=== PATIENT | female | born 1945 | race Caucasian/White ===

== ENCOUNTER 2016-12-30 05:58 | Day surgery (SDC) | payer OTHER, MEDICARE ==
[2016-12-30] MEDS ORDERED: LACTATED RINGERS 1,000 ML ONE (06:31)
[2016-12-30 08:51] VITALS: BP 110/60; TEMP 99; O2SAT 98
--- NOTE | 2016-12-30 10:05 | OP ---
DATE OF PROCEDURE: 12/30/16 PREOPERATIVE DIAGNOSIS: 1. History of colonic polyps. 2. History of diverticulosis. POSTOPERATIVE DIAGNOSIS: 1. Sessile colonic polyp at 15 cm, at the most distal end of the sigmoid colon. 2. Sigmoid diverticulosis, moderate. PROCEDURE: 1. Colonoscopy with polypectomy. SURGEON: Delfin Guaman MD. ANESTHESIA: MAC by Mario Shin CRNA. ESTIMATED BLOOD LOSS: less than 2 mL. COMPLICATIONS: None apparent. TECHNIQUE: After informed consent was obtained from the patient, the patient was taken to the Endoscopy Suite and put in the left lateral decubitus position. After adequate IV sedation was obtained, a digital rectal exam was performed which revealed normal sphincter tone and no intraluminal masses. The colonoscope was then passed with good visualization all the way through the colon. The bowel prep was good. The cecum was identified by the presence of ileocecal valve and appendiceal orifice. The scope was then withdrawn slowly over the next 10 minutes and a good look at the entire colonic mucosa was obtained. I did identify one colonic polyp at the distal end of the sigmoid colon. It was a sessile polyp. It was right in a turn and very difficult to get our biopsy tool up to it. We were able to get a loop around it and did a hot snare with good hemostasis. The polyp was retrieved and sent to Pathology. The scope was removed the rest of the way. The patient tolerated the procedure well. The patient was transported to the outpatient area in good condition. She will followup with me in one week. #[id number] [facility] MED[facility] CENTERFrancesca
[2016-12-30] MEDS ORDERED: PROPOFOL 200 MG/20 ML VIAL IV ONE (12:00)
== END 2016-12-30 08:40 | disposition home or self-care (01) ==
LOC: AMB 05:58
PROVIDERS: ATTEND Family Medicine
DX: Z12.11 Encounter for screening for malignant neoplasm of colon (principal); D12.5 Benign neoplasm of sigmoid colon; K57.30 Diverticulosis of large intestine without perforation or abscess without bleeding; J45.909 Unspecified asthma, uncomplicated; E78.00 Pure hypercholesterolemia, unspecified; G47.33 Obstructive sleep apnea (adult) (pediatric); Z86.010 Personal history of colon polyps; G51.0 Bell's palsy; M81.0 Age-related osteoporosis without current pathological fracture; Z88.2 Allergy status to sulfonamides; Z91.041 Radiographic dye allergy status; Z87.891 Personal history of nicotine dependence
CPT/HCPCS: 00810; 45385; 88305; J3490; J7120

== ENCOUNTER → 2017-02-19 | Outpatient (CLI) | payer MEDICARE, OTHER | LOC: GMAH 11:13 | PROVIDERS: ATTEND Family Medicine | DX: E78.00 Pure hypercholesterolemia, unspecified (principal) ==

== ENCOUNTER → 2018-06-01 | Outpatient (CLI) | payer MEDICARE, OTHER ==
--- NOTE | 2018-06-01 15:53 | MRI ---
Study: MRI of the Right Foot. Indication: PAIN IN RIGHT FOOT Technique: Multiplanar, multi sequence MRI of the right foot was obtained without intravenous contrast. Comparison: None. Findings: Mild subcutaneous edema about the ankle. Patchy marrow edema noted in the anterolateral aspects of the distal calcaneus and the adjacent cuboid and likely reflect osseous contusions given history. Stress-related marrow edema is also a consideration as well. No displaced fracture identified. 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 Mild grade 4 chondrosis and subchondral marrow change at the lateral margin talar dome. Lisfranc ligament intact. Prior sprain anterior talofibular ligament with associated attenuation. No acute fluid filled tear of the medial or lateral ankle ligaments identified. Trace tenosynovitis medial tendons and peroneal tendons without tear. 7 mm os navicular bone. Moderate plantar calcaneal heel spurring. Plantar fascia intact. Impression: Patchy marrow edema throughout the calcaneus and cuboid likely contusive in etiology given history. Stress-related marrow edema is also a consideration. No fracture. Additional findings as above. Electronically signed by: Timmy Flores MD 06/01/2018 3:51 PM CDT
== END ==
LOC: MRI 13:34
PROVIDERS: ATTEND Family Medicine
DX: M79.671 Pain in right foot (principal)

== ENCOUNTER → 2018-06-02 | Outpatient (CLI) | payer MEDICARE, OTHER ==
--- NOTE | 2018-06-02 15:50 | RAD ---
EXAM DESCRIPTION: UGI: Rad-Fluoroscopy. CLINICAL HISTORY: DYSPHAGIA COMPARISON: None TECHNIQUE: The patient swallowed barium pill with water. The patient swallowed gas-producing granules, water, and heavy density barium under fluoroscopic visualization. The images were obtained with the patient standing and horizontal. Patient drank medium density barium through a straw in the semi-prone position. 79 fluoroscopic cine loop images. 9 static fluoroscopic images. Total fluoroscopy time was 2 minutes. DAP: Less than 10 Gy-cm2.. FINDINGS: The pill reached the esophagus at the level of the sternoclavicular joints after 1 sip water. After the second sip water, the pill reached the gastroesophageal junction. After the third sip of water, the pill flowed into the stomach. Before swallowing, there is premature spillage of contrast from the oral cavity into the left piriform sinus and vallecula. Patient required 2 swallows each time to clear the oral cavity. No laryngeal penetration or tesha aspiration. No mass effect on the hypopharynx or larynx. Primary peristaltic wave travels almost entire length of the esophagus with minimal secondary contractions. No gastroesophageal obstruction. Small sliding hiatal hernia. Mucosal pattern on the esophagus is unremarkable. Minimal contrast reflux into the hiatal hernia. Surgical clips in the gallbladder fossa. No gross mucosal lesions in the stomach. No mass effect. Duodenum was well distended with oral contrast. Medial wall diverticulum in the second segment. No other mucosal lesions. No mass effect. IMPRESSION: 1. No gross abnormalities of the swallowing mechanism. Premature loss of contrast from the oral cavity prior to swallowing. No mucosal lesions or mass effect on the hypopharynx or larynx. No laryngeal penetration or aspiration. 2. Primary peristaltic wave of the esophagus is almost complete with minimal secondary contractions distally. 3. Small sliding hiatal hernia with minimal gastroesophageal reflux into the hernia. 4. Stomach is unremarkable. Duodenum is unremarkable except for a medial wall diverticulum of the second segment. Electronically signed by: Moreno Day MD 06/02/2018 3:49 PM CDT
== END ==
LOC: RAD 10:05
PROVIDERS: ATTEND Family Medicine
DX: R13.10 Dysphagia, unspecified (principal); K44.9 Diaphragmatic hernia without obstruction or gangrene

== ENCOUNTER → 2018-09-03 | Outpatient (CLI) | payer MEDICARE, OTHER ==
--- NOTE | 2018-09-03 19:11 | MRI ---
EXAM DESCRIPTION: Knee,Right: MRI. CLINICAL HISTORY: MEDIAL MENISCUS TEAR COMPARISON: None. TECHNIQUE: Multiplanar, high-field MRI, multiple sequences, without contrast: right ortho FINDINGS: Intermediate signal in the medial and lateral menisci representing degeneration. Abnormal signal in the free edge of the anterior horn of the lateral meniscus communicating with the inferior articular surface and extending to the anterior root attachment. Effusion in the medial and lateral compartments. Chondromalacia medial more than lateral but no subchondral edema. Intermediate signal in the tibial insertion of the anterior cruciate ligament. Edema and swelling in the central posterior cruciate ligament. Intercruciate space effusion. Medial collateral ligament and elements of the lateral collateral ligament complex with normal signal. Posterior medial soft tissue fluid collections and edema in the lateral gastrocnemius muscle. Intermediate signal in the distal quadriceps tendon. Minimal edema anterior to the patella. Normal signal in thew patellar tendon. Minimal suprapatellar effusion. Grade 4 osteochondral lesion in the inferior left patellar facet at 2 locations. Chondromalacia in the lateral more than the medial trochlea. IMPRESSION: 1. Degeneration of the medial lateral menisci. Free edge tear of the anterior horn of the lateral meniscus. Medial and lateral compartment effusion. 2. Focal moderate sprain or partial tear of the posterior cruciate ligament. Minimal degeneration of the anterior cruciate ligament. Intercruciate space effusion. Lateral ligaments and lateral complex are intact. 3. Osteochondral lesions in the anterior lateral patellar facet and chondromalacia in the femoral trochlea. Medial fluid collections and posterior lateral gastrocnemius muscle strain. 4. Minimal suprapatellar effusion and degeneration of the quadriceps tendon insertion on the patella. Electronically signed by: Moreno Day MD 09/03/2018 7:09 PM CDT
== END ==
LOC: MRI 09:54
PROVIDERS: ATTEND Family Medicine
DX: S83.241A Other tear of medial meniscus, current injury, right knee, initial encounter (principal); S83.281A Other tear of lateral meniscus, current injury, right knee, initial encounter; M94.261 Chondromalacia, right knee; M25.461 Effusion, right knee

== ENCOUNTER → 2018-12-15 | Outpatient (CLI) | payer MEDICARE, OTHER ==
--- NOTE | 2018-12-16 17:35 | MAM ---
EXAM DESCRIPTION: 3D Screening BILATERAL : Digital Mammography. CLINICAL HISTORY: 73 years Female SCREEN . No complaints. No personal or family history of breast cancer.. Childbirth. Postmenopausal 39 years. No HRT in past 5 years. Lifetime risk of developing breast cancer (Tyrer-Cuzick model)(%): 3.2. COMPARISON: 2-D digital screening bilateral mammography . No prior reports available. TECHNIQUE: Bilateral CC and MLO projection full-field images, digital tomosynthesis mammographic technique. Bilateral digital 2-D full-field MLO images. CAD not available for tomosynthesis or 2-D images. FINDINGS: The breast parenchymal density pattern is: Almost entirely fatty. No skin thickening or nipple retraction. Bilateral axillary lymph nodes. Bilateral solitary calcifications and coarse calcifications. Skin mole on the medial inferior posterior right breast indicated by skin marker. No new focal, stellate mass or density, focal asymmetry , and no suspicious microcalcifications bilaterally. Stable mammograms compared to prior study. IMPRESSION: Benign exam. BIRAD CATEGORY: 2 BENIGN FINDINGS. RECOMMENDATIONS: FOLLOW UP: Routine digital bilateral mammographic screening, one year interval from #2019. Written communication explaining the IMPRESSION and follow-up, will be mailed to the patient and referring health care provider. According to the [employer], yearly mammograms are recommended starting at age 40 and continuing as long as a woman is in good health. Any breast change noted on a breast self-exam should be reported promptly to the patient's healthcare provider. Breast MRI is recommended for women with an approximately 20-25% or greater lifetime risk of breast cancer, including women with a strong family history of breast or ovarian cancer and women who have been treated for Hodgkin's disease. A negative mammographic report should not delay tissue diagnosis in patients with significant clinical history or physical findings. Extremely dense breast tissue limits the sensitivity of digital mammography. Electronically signed by: Moreno Day MD 12/16/2018 5:33 PM [facility] NURSE
== END ==
LOC: MAMMO 15:00
PROVIDERS: ATTEND Family Medicine
DX: Z12.31 Encounter for screening mammogram for malignant neoplasm of breast (principal)

== ENCOUNTER → 2020-01-19 | Outpatient (CLI) | payer MEDICARE, OTHER | DX: R71.8 Other abnormality of red blood cells (principal) ==

== ENCOUNTER → 2020-06-13 | Outpatient (CLI) | payer MEDICARE, OTHER ==
--- NOTE | 2020-06-14 08:21 | MRI ---
EXAM DESCRIPTION: Shoulder,Right CLINICAL HISTORY: 74 years, Female, UNSP ROTATOR CUFF TEAR OR RUPTURE OF RIGHT SHOULDER. Limited range of motion. COMPARISON: Right shoulder radiograph dated 06/05/2020 TECHNIQUE: MRI of the right shoulder was performed with multiplanar multi sequence imaging without intravenous contrast. FINDINGS: Rotator tendons: Supraspinatus tendon low to intermediate grade partial-thickness articular surface tear at the anterior half insertional fibers. Intermediate grade interstitial delamination tear involving the posterior critical zone fibers extending to the myotendinous junction (series 501 image nine). Additional intermediate grade bursal surface tear at the posterior myotendinous junction measuring 7 mm in AP dimension (series 701 image 13, involving approximately 50% tendon thickness). Infraspinatus tendon low-grade partial-thickness bursal surface tears at the anterior insertional fibers. The subscapularis and teres minor tendons are intact. Rotator muscles: No rotator cuff muscle atrophy. Glenoid labrum: Limited evaluation of the labrum demonstrate degenerative tears of the anterior labrum (at the chondral labral junction, series 301 image nine) and inferior labrum free edge. Acromion: The acromion morphology is type II. Mild acromioclavicular joint osteoarthrosis with mild capsular hypertrophy. Bone and joints: Mild glenohumeral joint osteoarthrosis with inferior humeral head marginal osteophytosis. Intermediate to high-grade chondral thinning involves the inferior glenohumeral joint articular surfaces. Mild traction bone marrow edema at the lateral humeral head adjacent to the supraspinatus footplate. Biceps tendon: Normal course and morphology of the biceps tendon long head within the bicipital groove. The biceps labral anchor appears intact. Soft tissues: No solid or cystic mass is seen. Mild subacromial/subdeltoid bursitis. IMPRESSION: 1. Supraspinatus tendon multifocal intermediate grade tears. No full-thickness tear or tendon retraction. 2. Infraspinatus tendon low-grade partial-thickness tears. 3. Glenoid labrum degenerative tears involving the anterior and inferior labrum. 4. Glenohumeral joint osteoarthrosis with patchy areas of intermediate to high-grade chondrosis. 5. Acromioclavicular joint osteoarthrosis with mild subacromial/subdeltoid bursitis. Electronically signed by: Jagdeep Moreno DO 06/14/2020 8:20 AM CDT
== END ==
LOC: MRI 12:58
PROVIDERS: ATTEND Family Medicine
DX: M75.101 Unspecified rotator cuff tear or rupture of right shoulder, not specified as traumatic (principal); S43.431A Superior glenoid labrum lesion of right shoulder, initial encounter; M19.011 Primary osteoarthritis, right shoulder; M71.9 Bursopathy, unspecified

== ENCOUNTER → 2020-08-21 | Outpatient (CLI) | payer MEDICARE, OTHER ==
--- NOTE | 2020-08-21 17:21 | RAD ---
EXAM DESCRIPTION: Pelvis CLINICAL HISTORY: HIP PAIN RIGHT COMPARISON: CT the abdomen pelvis dated 16 May 2010 TECHNIQUE: AP pelvis FINDINGS: Degenerative changes are observed in the lower lumbar spine. Minimal acetabular osteophyte formation is observed. No fracture is detected. No pelvic injury is seen. Service observed in the pelvis. IMPRESSION: Minimal degenerative changes are observed. No fracturing is detected. Electronically signed by: Mikey Roberts MD 08/21/2020 5:20 PM CDT
--- NOTE | 2020-08-21 17:23 | RAD ---
EXAM DESCRIPTION: Shoulder,Right 2 or More Views CLINICAL HISTORY: SHOULDER PAIN RIGHT COMPARISON: None. TECHNIQUE: 4 views right FINDINGS: Mild degenerative changes are observed in the acromioclavicular joint. The glenohumeral joint is unremarkable. No evidence of fracture or dislocation is seen. IMPRESSION: Mild AC joint arthritis is observed. The exam is otherwise unremarkable. Electronically signed by: Mikey Roberts MD 08/21/2020 5:21 PM CDT
--- NOTE | 2020-08-21 17:25 | RAD ---
EXAM DESCRIPTION: Knee,Right Complete CLINICAL HISTORY: KNEE PAIN RIGHT COMPARISON: Magnetic resonance imaging of the knee dated 03 September 2018. TECHNIQUE: 3 views right FINDINGS: Mild degenerative changes are observed in the patellofemoral joint. No fracture is detected. No joint effusion is seen. Mild loss of medial joint space is observed in the medial joint compartment. The lateral joint compartment is unremarkable. IMPRESSION: Mild degenerative changes are observed in the medial joint compartment and patellofemoral joint. Electronically signed by: Mikey Roberts MD 08/21/2020 5:23 PM CDT
== END ==
LOC: RAD 10:52
PROVIDERS: ATTEND Orthopaedic Surgery
DX: M16.11 Unilateral primary osteoarthritis, right hip (principal); M19.011 Primary osteoarthritis, right shoulder; M17.11 Unilateral primary osteoarthritis, right knee

== ENCOUNTER 2020-09-21 05:24 | Day surgery (SDC) | payer MEDICARE, OTHER ==
[2020-09-21] MEDS ORDERED: LACTATED RINGERS 1,000 ML ONE (06:31)
[2020-09-21] MEDS ORDERED: PROPOFOL 200 MG/20 ML VIAL IV ONE (07:00)
[2020-09-21] MEDS ORDERED: LIDOCAINE 1% 10 ML VIAL INJ ONE (07:00)
--- NOTE | 2020-09-21 11:36 | OP ---
DATE OF PROCEDURE: 09/21/20 PREOPERATIVE DIAGNOSIS: 1. History of colonic polyps. POSTOPERATIVE DIAGNOSIS: 1. Single colonic polyp. PROCEDURE: 1. Colonoscopy with single polypectomy at 10 cm. SURGEON: Delfin Kemp MD ANESTHESIA: General. FINDINGS: Normal colon other than the single, small polyp. PROCEDURE: General anesthesia was induced in the lateral position. Digital rectal exam was normal. The colonoscope was inserted with minimal difficulty all the way to the cecum, which was identified by the appendiceal orifice and the ileocecal valve. Upon withdrawal, the mucosal surfaces appeared normal throughout. There was one small polyp identified at the very end at about 10 cm, possibly hyperplastic. It was completely excised. There were internal hemorrhoids, non-thrombosed, non-bleeding. The patient tolerated the procedure and was taken to Recovery to be discharged. We will followup in two weeks for biopsy results. #[id number] cc: Delfin Guaman MD [facility]
[2020-09-21 12:01] VITALS: BP 115/63; TEMP 97.4; O2SAT 97
== END 2020-09-21 12:00 | disposition home or self-care (01) ==
LOC: AMB 05:24
PROVIDERS: ATTEND Surgery
DX: K63.5 Polyp of colon (principal); K64.8 Other hemorrhoids; J45.909 Unspecified asthma, uncomplicated; K59.00 Constipation, unspecified; E78.00 Pure hypercholesterolemia, unspecified; G51.0 Bell's palsy; Z86.010 Personal history of colon polyps; Z88.2 Allergy status to sulfonamides; Z88.8 Allergy status to other drugs, medicaments and biological substances; Z90.710 Acquired absence of both cervix and uterus; Z87.19 Personal history of other diseases of the digestive system; Z87.891 Personal history of nicotine dependence; Z79.899 Other long term (current) drug therapy
CPT/HCPCS: 00811; 45380; J3490; J7120